=== PATIENT | female | born 1985 | race Two or more races ===

== ENCOUNTER 2018-08-07 20:28 | Emergency (ER) | payer BC, OTHER ==
--- NOTE | 2018-08-07 20:44 | ED Physician Chart ---
ED Chief Complaint/HPI - Patient Information Date Seen:: 08/07/18 Time Seen:: 20:39 Chief Complaint:: lt 4th digit puncture wound History of Present Illness:: 32 yr old here for laceration lt 4th digit when she was cutting with a blade ED Review of Systems - Review of Systems General/Constitutional: No fever, No chills, No weight loss, No weakness, No diaphoresis, No edema, No loss of appetite Skin: Other (laceration lt 4th digit) Head: No headache, No light-headedness Eyes: No loss of vision, No pain, No diplopia ENT: No earache, No nasal drainage, No sore throat, No tinnitus Neck: No neck pain, No swelling, No thyromegaly, No stiffness, No mass noted Cardio Vascular: No chest pain, No palpitations, No PND, No orthopnea, No edema Pulmonary: No SOB, No cough, No sputum, No wheezing GI: No nausea, No vomiting, No diarrhea, No pain, No melena, No hematochezia, No constipation, No hematemesis G/U: No dysuria, No frequency, No hematuria Musculoskeletal: No bone or joint pain, No back pain, No muscle pain Endocrine: No polyuria, No polydipsia Psychiatric: No prior psych history, No depression, No anxiety, No suicidal ideation Hematopoietic: No bruising, No lymphadenopathy Allergic/Immuno: No urticaria, No angioedema Neurological: No syncope, No focal symptoms, No weakness, No paresthesia, No headache, No seizure, No dizziness, No confusion, No vertigo ED Past Medical History - Past Medical History Past Medical History: No significant medical hx ED Physical Exam - Physical Examination General/Constitutional: Awake Head: Atraumatic Eyes: Lids, conjuctiva normal, PERRL, EOMI Skin: No rash, No ecchymosis, Well hydrated, No lymphadenopathy Other Skin comments:: laceration tip of lt 4th digit 1.5 cm superficiial cut no deformity ENMT: External ears, nose nl, Nasal exam nl, Lips, teeth, gums nl Neck: Nontender, Full ROM w/o pain, No JVD, No nuchal rigidity, No bruit, No mass, No stridor Respiratory: Nl effort/Exclusion, Clear to Auscultation, No Wheeze/Rhonchi/Rales Cardio Vascular: RRR, No murmur, gallop, rubs, NL S1 S2 GI: No tenderness/rebounding/guarding, No organomegaly, No hernia, Normal BS's, Nondistended, No mass/bruits, No McBurney tenderness : No CVA tenderness Extremities: No tenderness or effusion, Full ROM, normal strength in all extremities, No edema, Normal digits & nails Neuro/Psych: Alert/oriented, DTR's symmetric, Normal sensory exam, Normal motor strength, Judgement/insight normal, Mood normal, Normal gait, No focal deficits Misc: Normal back, No paraspinal tenderness ED Assessment - Assessment General Assessment: laceration lt digit s/p dermabond ED Septic Shock - . Is Septic Shock (SBP<90, OR Lactate>4 mmol\L) present?: No ED Reassessment (Disposition) - Reassessment Reassessment:: laceration s/p dermabond - Diagnosis Diagnosis:: laceraton lt digit s/p dermabond - Aftercare/Follow up Instructions Aftercare/Follow-Up Instructions:: Counseled pt regarding lab results/diagnosis & need follow up - Patient Disposition Discharge/Transfer:: Home Condition at Disposition:: Stable
== END 2018-08-07 21:20 | disposition home or self-care (01) ==
LOC: ER 20:28
DX: S61.215A Laceration without foreign body of left ring finger without damage to nail, initial encounter (principal); W26.8XXA Contact with other sharp object(s), not elsewhere classified, initial encounter; Y93.89 Activity, other specified; Y92.89 Other specified places as the place of occurrence of the external cause; Y99.8 Other external cause status
CPT/HCPCS: 12001; Z7502

== ENCOUNTER 2018-11-26 14:32 | Inpatient (IN) | payer BC, OTHER ==
--- NOTE | 2018-11-26 15:02 | ED Physician Chart ---
ED Chief Complaint/HPI - Patient Information Date Seen:: 11/26/18 Time Seen:: 14:40 Chief Complaint:: abdominal pain, vomiting and diarrhea History of Present Illness:: Patient developed periumbilical pain night before last. Yesterday she developed vomiting and diarrhea which is worse today. She has vomited 6 times today and had watery diarrhea 6 times also. Patient previously has had blood in the stool but not during the current illness. Allergies:: Allergies Allergy/AdvReac Type Severity Reaction Status Date / Time No Known Allergies Allergy Verified 08/07/18 20:52 Vitals:: Vital Signs - 8 hr 11/26/18 14:46 Temp 98.5 F HR 110 RR 22 BP 121/79 O2 Sat % 100 Historian:: Patient Review:: Nurse's Note Reviewed ED Review of Systems - Review of Systems General/Constitutional: No fever, No chills Skin: No skin lesions Head: No headache Eyes: No loss of vision ENT: No earache Neck: No neck pain, No swelling Cardio Vascular: No chest pain, No palpitations Pulmonary: No SOB GI: Nausea, Vomiting, Diarrhea, Pain G/U: No dysuria Musculoskeletal: No bone or joint pain, No back pain, No muscle pain Psychiatric: No prior psych history Hematopoietic: No bruising ED Past Medical History - Past Medical History Past Medical History: Other (Crohn's disease; ulcerative colitis; hypothyroidism ) Family History: HTN Social History: Non Smoker, No Alcohol Surgical History: other ("baseball sized" ovarian cyst) Psychiatricy History: None Medication: Reviewed Family Medical History - Family Member Mother History Unknown: Yes ED Physical Exam - Physical Examination General/Constitutional: Awake, Well-developed, well-nourished, Alert, No distress Head: Atraumatic Eyes: Lids, conjuctiva normal, PERRL Skin: Nl inspection, No rash, No skin lesions, No ecchymosis ENMT: External ears, nose nl, TM canals nl, Nasal exam nl, Lips, teeth, gums nl Neck: Nontender, No nuchal rigidity Respiratory: Nl effort/Exclusion, Clear to Auscultation Cardio Vascular: RRR, No murmur, gallop, rubs GI: No organomegaly, No hernia, Normal BS's, Nondistended, No mass/bruits Other GI comments:: diff diffuse tenderness maximum in the epigastrium and RLQ Extremities: Normal digits & nails Neuro/Psych: No focal deficits ED Assessment - Assessment General Assessment: At about 1750 patient's pain was mild. Laboratory tests are normal. Patient felt she could be discharged. I am concerned about the patient getting so many CAT scans as she apparently has already had 9. Told the patient that if her pain returns she should come back to the emergency department. Patient's pain seems to me primarily from gastroenteritis although it may be exacerbated by her having Crohn's disease and ulcerative colitis. ED Septic Shock - . Is Septic Shock (SBP<90, OR Lactate>4 mmol\\L) present?: No - <6hrs of presentation: Vital Signs: Vital Signs - 8 hr 11/26/18 14:46 Temp 98.5 F HR 110 RR 22 BP 121/79 O2 Sat % 100 ED Reassessment (Disposition) - Reassessment Reassessment Condition:: Improved - Diagnosis Diagnosis:: Gastroenteritis; history of Crohn's disease; history of ulcerative colitis - Aftercare/Follow up Instructions Aftercare/Follow-Up Instructions:: Refer to Discharge Instructions - Patient Disposition Discharge/Transfer:: Home Condition at Disposition:: Stable, Improved
[2018-11-26] MEDS ORDERED: Sodium Chloride 0.9% 1,000 ML IV ONE ×2 (15:04→16:19)
[2018-11-26] MEDS ORDERED: Morphine Sulfate 4 mg/mL 1mL Syr IVP STA (15:06)
[2018-11-26 15:13] LABS: % BASOPHILS 0.3 % (0.0-2.0); % EOSINOPHILS 0.7 % (0.0-5.0); % LYMPHOCYTES 28.6 % (20.0-50.0); % MONOCYTES 9.9 % (2.0-10.0); % NEUTROPHILS 60.5 % (40.0-80.0); HEMATOCRIT 41.3 % (41.0-60); LYMPHOCYTE ABSOLUTE 1.4 Th/cmm (1.5-3.0); MEAN CELL VOLUME 89.9 fl (81-100); MEAN CORPUSCULAR HEMOGLOBIN 30.6 pg (27.0-31.0); MONOCYTE ABSOLUTE 0.5 Th/cmm (0.3-1.0); NEUTROPHILE ABSOLUTE 3.1 Th/cmm (1.8-8.0); PLATELET COUNT 263 Th/cmm (150-400); RED BLOOD COUNT 4.59 Mil/cmm (3.80-5.10); RED CELL DISTRIBUTION WIDTH 12.9 % (11.5-20.0)
[2018-11-26 15:14] LABS: URINE SOURCE MIDSTREAM
[2018-11-26] MEDS ORDERED: Morphine Sulfate 4 mg/mL 1mL Syr ONE (15:14)
[2018-11-26 15:15] LABS: URINE BILIRUBIN NEGATIVE (NEGATIVE); URINE BLOOD TRACE (NEGATIVE); URINE GLUCOSE (UA) NEGATIVE (NEGATIVE); URINE KETONE NEGATIVE (NEGATIVE); URINE LEUKOCYTE ESTERASE NEGATIVE (NEGATIVE); URINE MICROSCOPIC INDICATED? YES; URINE NITRATE NEGATIVE (NEGATIVE); URINE PROTEIN NEGATIVE (NEGATIVE); URINE UROBILINOGEN 0.2 E.U./dL (0.2 - 1.0)
[2018-11-26 15:25] LABS: URINE CLARITY HAZY (CLEAR); URINE COLOR YELLOW
[2018-11-26 15:26] LABS: URINE BACTERIA FEW /hpf (NONE SEEN); URINE EPITHELIAL CELLS FEW /lpf (FEW)
[2018-11-26 15:31] LABS: ANION GAP 12.4 (7.0-16.0); BUN - UREA NITROGEN 12 mg/dL (7-25); CALCIUM SERUM 9.6 mg/dL (8.6-10.3); CARBON DIOXIDE 22.1 mEq/L (21.0-31.0); CHLORIDE 106 mEq/L (98-107); CREATININE - SERUM 0.6 mg/dL (0.6-1.2); GFR AFRICAN-AMERICAN > 60.0 ml/min (>90); GFR NON AFRICAN-AMERICAN > 60.0 ml/min; GLUCOSE 88 mg/dL (70-105); LIPASE 27 U/L (11-82); POTASSIUM SERUM 3.5 mEq/L (3.5-5.1); SODIUM SERUM 137 mEq/L (136-145)
[2018-11-26] MEDS ORDERED: HYDROmorphone 1 mg/mL 1mL Syr IVP STA ×2 (16:30→19:58)
[2018-11-26] MEDS ORDERED: HYDROmorphone 1 mg/mL 1mL Syr ONE ×2 (16:33→19:59)
[2018-11-26] MEDS ORDERED: Sodium Chloride 0.9% 1,000 ML IV SCH (21:45)
[2018-11-26 22:48] VITALS: BP 113/77
[2018-11-26] MEDS ORDERED: LEVOFLOXACIN 750 MG/150 ML IV ONE (23:00)
[2018-11-27] MEDS ORDERED: Non-Formulary Item 1 EA (Omeprazole [Omeprazole] 40 MG) PO SCH (09:00)
[2018-11-27] MEDS ORDERED: LAMOTRIGINE 200 MG PO SCH (09:00)
[2018-11-27] MEDS ORDERED: MESALAMINE PO SCH (09:00)
--- NOTE | 2018-11-27 09:58 | Diagnostic Imaging Report ---
CT abdomen and pelvis without intravenous contrast Indication: Abdominal pain, history of inflammatory bowel disease Comparison: None, Technique: Axial images were obtained from the lung bases to the bilateral proximal femurs without IV contrast. Coronal reconstructions were made. total DLP: [id number], CTDI8.2 FINDINGS: Hypoventilatory and atelectatic changes of the lung bases are noted. The solid organs is limited due to lack of IV contrast. No evidence of focal hepatic lesions. Exam is also limited due to motion. No focal splenic, pancreatic, or adrenal lesions. No hydronephrosis or nephrolithiasis. Bilateral tubal ligation clips are noted. Moderate stool is seen throughout the colon. There is suggestion of bowel wall thickening of the bowel loops in the right lower quadrant likely distal ileal loops and possible large bowel loops in this region. Appendix is not visualized. No free fluid or free air. There is increased sclerosis seen along the inferior aspect of L5 vertebral body is indeterminate may be of degenerative etiology. Degenerative changes of the left SI joint is also noted. IMPRESSION: Limited exam due to motion Appendix is not visualized, however, there are no secondary signs to suggest acute appendicitis Bowel wall thickening of bowel loops in the right lower quadrant including the probably the distal ileum and cecal region. Above findings may be secondary to inflammatory bowel disease given patient's clinical history. No free fluid or free air. Moderate stool throughout the colon. Bilateral tubal ligation clips. Sclerosis involving the inferior aspect of L5 vertebral body extending to the endplate and along the left SI joint. Findings suggest degenerative etiologies. Please correlate with old exams. Consider follow-up surveillance if indicated.
== END 2018-11-26 23:25 | disposition left against medical advice (07) | DRG 392 ==
LOC: ER 14:32 → MSI 21:37
PROVIDERS: ADMIT General Practice; ATTEND General Practice
DX: K52.9 Noninfective gastroenteritis and colitis, unspecified (principal); K50.90 Crohn's disease, unspecified, without complications; Z53.21 Procedure and treatment not carried out due to patient leaving prior to being seen by health care provider
CPT/HCPCS: 36415-UA; 80048-TC; 81001-TC; 81025-TC; 83690-TC; 85025-TC; J1170; J1885; J2405; J7030